=== PATIENT | male | born 1965 | race Caucasian/White ===

== ENCOUNTER → 2021-08-16 | Outpatient (CLI) | payer OTHER ==
--- NOTE | 2021-08-16 13:59 | REP ---
INDICATION: LOW BACK PAIN. COMPARISON: None. TECHNIQUE: Three views FINDINGS: There is marginal osteophytosis bilaterally at every level heaviest at the L2-3 level. There is a grade 3 L1 biconcave compression deformity. The age of this cannot be determined. There is a mild dextroconvex lumbar curve. The bones are demineralized. There is posterior disc space narrowing and anterior lipping at every level. Degenerative facet joint changes are present at every level bilaterally particularly L4-5 and L5-S1. IMPRESSION: 1. L1 compression fracture as described above. 2. Chronic changes as described above. <Electronically signed by Noel Julio > 08/16/21 [id number]
== END ==
LOC: M SOG 11:13
PROVIDERS: ATTEND Orthopaedic Surgery
DX: M54.50 Low back pain, unspecified (principal); M25.78 Osteophyte, vertebrae; M48.56XA Collapsed vertebra, not elsewhere classified, lumbar region, initial encounter for fracture

== ENCOUNTER → 2021-09-09 | Outpatient (CLI) | payer OTHER ==
--- NOTE | 2021-09-10 11:05 | REPVR ---
PROCEDURE INFORMATION: Exam: MR Lumbar Spine Without Contrast Exam date and time: 09/09/2021 2:00 PM Age: 56 years old Clinical indication: Low back pain; Additional info: Lbp w/ radiculopathy TECHNIQUE: Imaging protocol: Multiplanar magnetic resonance images of the lumbar spine without intravenous contrast. COMPARISON: SPINE LUMBOSACRAL PARTIAL 08/16/2021 11:14 AM FINDINGS: Vertebrae: Mild dextroconvex scoliosis. No acute fracture seen. Moderate, chronic anterior wedging of the L1 vertebral body. No osseous retropulsion. Spinal cord: The conus medullaris ends normally. Disc height loss and spondylosis is mild at L1-L2 and L5-S1. Elsewhere, minimal prevertebral spondylosis. T12-L1: Mild disc bulge as well as moderate facet arthropathy. No stenoses. L1-L2: The mild disc osteophyte complex and facet arthropathy. The central spinal canal remains patent. Mild right neural foraminal stenosis. No significant left neural foraminal narrowing. L2-L3: Mild disc bulge. High-intensity zone in posterior disc margin. A left paracentral disc protrusion measures 2-3 mm in AP dimension. Facet arthropathy is iulf-ef-[id number]. The central spinal canal remains patent. Left lateral recess stenosis is mild without evidence of nerve root impingement. No significant foraminal stenoses. L3-L4: Udsg-ei-estyhqig left eccentric disc osteophyte complex and facet arthropathy. The central spinal canal remains patent. Mild left neural foraminal stenosis. No significant right neural foraminal narrowing. L4-L5: Mild disc bulge and djkk-gd-wqxsmhma facet arthropathy. The central spinal canal remains patent. No significant foraminal stenoses. L5-S1: Qpby-fc-mfvnppca right eccentric disc osteophyte complex as well as moderate right and dkeg-ps-cektfmym left facet arthropathy. A 3-4 mm right lateral canal disc protrusion abuts the right S1 nerve root, image 3 series 601. The central spinal canal is patent. Ejbp-ga-ydsmmxpt right neural foraminal stenosis. No significant left neural foraminal narrowing. Soft tissues: Unremarkable. IMPRESSION: A right lateral canal disc protrusion at L5-S1 may be cause of right S1 distribution radiculopathy. Electronically signed by: Dahlia Parker On 09/10/2021 11:05:23 AM
== END ==
LOC: M PLAIMG 13:12
PROVIDERS: ATTEND Orthopaedic Surgery
DX: M54.16 Radiculopathy, lumbar region (principal); M51.26 Other intervertebral disc displacement, lumbar region